=== PATIENT | male | born 1945 | race Caucasian/White ===

== ENCOUNTER → 2018-05-27 | Outpatient (CLI) | payer OTHER ==
[~2018-05-27] MED LIST: ASPI-496 PO; CEPH-368 PO; DIGO125T PO; DISU250T15 PO; FURO20TA3 PO; HYDR-3240 PO; LOSA1TAB22 PO; METO100T5 PO; METO25TA35 PO; METO50TA82 PO; MULT-658 PO; Miscellaneous XX; POTA10TA11 PO; POTA10TA5 PO; PRED10TA PO; PRED20TA PO; WARF1TAB9 PO; WARF7.5T46 PO; will bring list
== END | disposition home or self-care (01) ==
LOC: CFH 08:04
PROVIDERS: ATTEND Internal Medicine Cardiovascular Disease
DX: I34.0 Nonrheumatic mitral (valve) insufficiency (principal); E78.5 Hyperlipidemia, unspecified; Z87.891 Personal history of nicotine dependence
CPT/HCPCS: 93306

== ENCOUNTER 2018-08-14 08:42 | Emergency (ER) | payer MEDICARE, OTHER ==
[~2018-08-14] VITALS: Ht 170.2 cm; Wt 96.0 kg
[~2018-08-14 08:42] MED LIST changes: +ALLO300T PO; +ATOR40TA78 PO; +LISI5TAB7 PO; +METO200T47 PO
--- NOTE | 2018-08-14 08:55 | NUR ---
PATIENT HAD EPISTAXIS EARLIER THIS WEEK. REPORTEDLY MILD. STOPPED COUMADIN FOR TWO DAYS. PT REPORTS THE LAST TIME HE HAD COMPLETE BLOOD DRAWN WAS EARLIER THIS WEEK. NO ACTIVE SIGN OF BLEEDING AT THIS TIME.
--- NOTE | 2018-08-14 09:11 | NUR ---
RECIEVED REPORT FROM SHARIF GRAHAM. ALL QUESTIONS ANSWERED. ASSUMING CARE OF PT AT THIS TIME. PT RESTING ON EYE EXAM CHAIR. NADN. NASAL CLAMP ON. PT HAS CALL LIGHT WITHIN REACH. FAMILY AT BEDSIDE. NO NEEDS EXPRESSED AT THIS TIME.
[2018-08-14] MEDS ORDERED: COCAINE TOPICAL SOLN 4%, 4ML ONE (09:15)
[2018-08-14] MEDS ORDERED: COCAINE TOPICAL SOLN 4%, 4ML TP ONE (09:30)
--- NOTE | 2018-08-14 09:46 | NUR ---
Provided medicaiton per EMAR to ED .
[2018-08-14 09:54] LABS: BASOPHILS # (AUTO) 0.05 x10^3/uL (0-0.1); BASOPHILS % (AUTO) 1 % (0-1); EOSINOPHILS # (AUTO) 0.11 x10^3/uL (0-0.4); EOSINOPHILS % (AUTO) 1 % (1-7); LYMPHOCYTES # (AUTO) 1.33 x10^3/uL (1-3.4); LYMPHOCYTES % (AUTO) 16 % (22-44); MD NO; MEAN CORPUSCULAR HEMOGLOBIN 30.3 pg (27.5-34.5); MEAN CORPUSCULAR HGB CONC 33.8 g/dL (33.2-36.2); MEAN CORPUSCULAR VOLUME 89.4 fL (81-97); MEAN PLATELET VOLUME 9.3 fL (7.4-10.4); MONOCYTES # (AUTO) 0.67 x10^3/uL (0.2-0.8); MONOCYTES % (AUTO) 8 % (2-9); NEUTROPHILS # (AUTO) 6.27 x10^3/uL (1.8-6.8); NEUTROPHILS % (AUTO) 74 % (42-75); PLATELET COUNT 180 x10^3/uL (130-400); RED BLOOD COUNT 5.22 x10^6/uL (4.38-5.82); RED CELL DISTRIBUTION WIDTH 15.3 % (9.4-14.8)
[2018-08-14 10:03] LABS: INTERNATIONAL NORMALIZED RATIO 1.25 (0.93-1.1)
--- NOTE | 2018-08-14 10:13 | NUR ---
Pt sitting on chair. ERIC. EDMD at bedside. No needs expressed at this time.
[2018-08-14 10:40] VITALS: BP 121/80
--- NOTE | 2018-08-14 10:40 | NUR ---
Patient given discharge instructions and they have confirmed that they understand the instructions. Patient ambulatory with steady gait. Pt left with discharge paperwork and all personal belongings.
== END 2018-08-14 10:42 | disposition home or self-care (01) ==
LOC: ED 09:28
DX: R04.0 Epistaxis (principal); D68.9 Coagulation defect, unspecified; Z95.0 Presence of cardiac pacemaker; I48.91 Unspecified atrial fibrillation; Z87.891 Personal history of nicotine dependence; I50.9 Heart failure, unspecified
CPT/HCPCS: 36415; 85025; 85610; 99283

== ENCOUNTER 2021-03-07 10:16 | Outpatient (CLI) | payer MEDICARE ==
[~2021-03-07 10:16] MED LIST changes: -DIGO125T PO; +DIGO125T85 PO; +HYDR-2214 PO; -HYDR-3240 PO
== END 2021-03-07 23:59 | disposition home or self-care (01) ==
LOC: RAD 10:16
PROVIDERS: ATTEND Family Medicine
DX: M51.36 Other intervertebral disc degeneration, lumbar region (principal); M47.816 Spondylosis without myelopathy or radiculopathy, lumbar region; M48.07 Spinal stenosis, lumbosacral region
CPT/HCPCS: 72148